=== PATIENT | male | born 2000 | race Two or more races ===

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

== ENCOUNTER 2019-04-17 04:42 | Emergency (ER) | payer BC, OTHER ==
[~2019-04-17] VITALS: Ht 182.9 cm; Wt 104.3 kg
[~2019-04-17 04:42] MED LIST: CEPH-264 PO
[2019-04-17 04:46] VITALS: BP 160/98
[2019-04-17] MEDS ORDERED: IBUPROFEN 200 MG TABLET. PO ONE (05:15)
--- NOTE | 2019-04-17 05:30 | PHYS DOC ---
Past Medical History Past Medical History: No Pertinent History Past Surgical History: No Surgical History Alcohol Use: None Drug Use: None Adult General Chief Complaint Chief Complaint: TOE PROBLEM HPI HPI Patient is a 18 year old male who presents with ingrown left foot great toenail[]. Symptoms began approximately 18 months ago. Patient was evaluated emergency department prescribed medications but did not follow-up with a primary care physician or health care / medical job titles. Patient states the pain is worsening wishes to have toenail removed to taking care of at this time. Review of Systems Review of Systems Review symptoms as per history of present illness. All other systems were reviewed and found to be within normal limits, except as documented in this note. Current Medications Current Medications Current Medications Medications (Trade) Dose Ordered Sig/Tati Start Time Stop Time Status Last Admin Dose Admin Ibuprofen (Motrin) 600 mg 1X ONCE 04/17/19 05:15 04/17/19 05:16 DC 04/17/19 05:19 600 MG Allergies Allergies Allergies Coded Allergies Type Severity Reaction Last Updated Verified No Known Drug Allergies 04/17/19 No Physical Exam Physical Exam Constitutional: Well developed, well nourished, no acute distress, non-toxic appearance. [] HENT: Normocephalic, atraumatic, bilateral external ears normal, nose normal. [] Extremities: Left foot, ingrown left great toenail. [] Neurologic: Alert and oriented X 3, normal motor function, normal sensory function, no focal deficits noted. [] Psychologic: Affect normal, judgement normal, mood normal. [] Current Patient Data Vital Signs Vital Signs Date Time Temp Pulse Resp B/P (MAP) Pulse Ox O2 Delivery O2 Flow Rate FiO2 04/17/19 04:46 97.6 17 17 160/98 (118) 99 Room Air 97.6 EKG EKG [] Radiology/Procedures Radiology/Procedures [] Course & Med Decision Making Course & Med Decision Making Pertinent Labs and Imaging studies reviewed. (See chart for details) [Ibuprofen given. Patient instructed to follow-up with his PCP or health care / medical job titles earlier today for further management] Dragon Disclaimer Dragon Disclaimer This electronic medical record was generated, in whole or in part, using a voice recognition dictation system. Departure Departure Impression: Primary Impression: Ingrown nail of great toe of left foot Disposition: HOME/RESIDENCE PRIOR TO ADM Condition: STABLE Patient Instructions: Ingrown Toenail Additional Instructions: Please follow up with your PCP or health care / medical job titles later today. CHRIS NICHOLS DO Apr 17, 2019 05:30
== END 2019-04-17 05:25 | disposition home or self-care (01) ==
LOC: ER 04:42
DX: L60.0 Ingrowing nail (principal)
CPT/HCPCS: 99282